=== PATIENT | male | born 1990 | race Caucasian/White ===

== ENCOUNTER 2018-05-13 11:35 | Emergency (ER) | payer MEDICAID, SELFPAY ==
[2018-05-13 11:36] VITALS: BP 106/65; PULSE 98; RESP 16; TEMP 36.5; O2SAT 98; BMI 27.6
--- NOTE | 2018-05-13 12:13 | RAD_ITS ---
STUDY: X-RAY CHEST REASON FOR EXAM: Male, 28 years old. Chest pain TECHNIQUE: PA and lateral views of the chest. COMPARISON: None. FINDINGS: The lungs are clear and expanded. There is no demonstrated pleural abnormality. Normal size heart. Normal mediastinum and efrain. Normal visualized pulmonary arteries. Normal visualized aortic arch and descending thoracic aorta. Normal visualized thoracic spine. Normal visualized ribs, clavicles, and shoulders. There is no demonstrated abnormality of the visualized soft tissue structures of the upper abdomen. RAD/Chest PA and Lateral IMPRESSION: Normal x-ray examination of the chest. Electronically Signed: Salvatore Molina DO at 12:46 EDT Tel , Service support ,
[2018-05-13] MEDS: Ipratropium/Albuterol Sulfate 3 ML AMPUL.NEB INHALATION (12:28)
[2018-05-13 12:29] VITALS: PULSE 82; RESP 16
--- NOTE | 2018-05-13 12:46 | ED.VISSUMM ---
- ER Visit Summary Date of Service: 05/13/18 Chief Complaint: Cough History of Present Illness: The patient is a 28 M who presents with cough and tightness in his chest for the past 2 weeks. Patient states he has a history of asthma when he was a child but currently does not take any medications for asthma. Patient states he has been having some clear sputum. Patient denies any fevers or chills. Patient denies any nausea or vomiting. Patient states he does feel short of breath at times. Patient also admits to intermittent headache. Physical Examination: Vital signs are stable. Patient is afebrile. Patient is in no acute distress. Oral mucosa is pink and moist. Neck is supple. Trachea is midline. There is no JVD noted. Heart was regular rate and rhythm. Lungs are clear and equal bilaterally. There is adequate respiratory effort noted. Abdomen is soft. Bowel sounds are normal. There is no tenderness noted. Cranial nerves II through XII are intact. There are no focal motor or sensory deficits noted. Test Results: PA and lateral chest x-ray was obtained. There is no acute process noted. Emergency Department Course and Treatment: Patient was given a DuoNeb aerosol here in the emergency department. Patient felt better on reevaluation. Patient was instructed to follow-up with his primary care physician in 5-7 days. Patient was given a prescription for an albuterol inhaler to take as needed. Patient understood and was agreeable with the plan. All questions were answered. Disposition: Discharge home Impression: Viral upper respiratory infection This note was generated with [facility] dictation software. It may contain incorrect words, spelling, and punctuation that were not noted in review of the chart prior to signing ED Disposition - Plan for ED Patient: Disposition: Home or Assisted Living Chief Complaint: Cough Diagnosis: Upper respiratory infection Instructions: ED Upper Resp Infec No Abx Tx Prescriptions: Albuterol Inhaler [Ventolin Hfa] 1 - 2 puff INHALATION Q4H PRN PRN #1 inhaler PRN Reason: Wheezing Referrals: NOT,DEFINED [NON-STAFF] -
[2018-05-13 13:16] VITALS: BP 128/68; PULSE 77; RESP 20; O2SAT 98
--- NOTE | 2018-05-14 13:02 | CM.ED ---
ED CALLBACK: Follow-up call placed to patient with no answer. Voicemail left with return contact information.
== END 2018-05-13 13:17 | disposition home or self-care (01) ==
PROVIDERS: Emergency Provider Emergency Medicine
DX: J06.9 Acute upper respiratory infection, unspecified (principal); Z79.899 Other long term (current) drug therapy
CPT/HCPCS: 71046; 94640; 99282

== ENCOUNTER → 2018-05-22 16:04 | Outpatient (CLI) | payer MEDICAID, SELFPAY ==
[2018-05-26 03:07] LABS: Alternaria tenuis <0.10 kU/L (Class 0); Ash, White <0.10 kU/L (Class 0); Aspergillus fumigatus <0.10 kU/L (Class 0); Bermuda Grass 3.54 kU/L (Class III); Birch <0.10 kU/L (Class 0); Black Walnut <0.10 kU/L (Class 0); Cat Hair / Dander,Stand <0.10 kU/L (Class 0); Cedar, Mountain <0.10 kU/L (Class 0); Cladosporium herbarum <0.10 kU/L (Class 0); Cockroach, American 1.24 kU/L (Class II); Cottonwood <0.10 kU/L (Class 0); D farinae Mite <0.10 kU/L (Class 0); D pteronyssinus <0.10 kU/L (Class 0); Dog Epithelia 0.29 kU/L (Class 0/I); Elm, American White <0.10 kU/L (Class 0); Immunoglobulin E 339 IU/mL (0-100); Maple/Box Elder <0.10 kU/L (Class 0); Mulberry, White <0.10 kU/L (Class 0); Oak, White <0.10 kU/L (Class 0); Pecan <0.10 kU/L (Class 0); Penicillium Notatum <0.10 kU/L (Class 0); Pigweed, Rough <0.10 kU/L (Class 0); Ragweed, Short/Common 0.14 kU/L (Class 0/I); Russian Thistle <0.10 kU/L (Class 0); Sheep Sorrel <0.10 kU/L (Class 0); Sycamore, American <0.10 kU/L (Class 0)
[2018-05-26 09:08] LABS: Immunoglobulin E 380 IU/mL (0-100); Mouse Urine <0.10 kU/L (Class 0)
== END ==
PROVIDERS: Visit Provider Otolaryngology Otolaryngology/Facial Plastic Surgery
DX: T78.40XA Allergy, unspecified, initial encounter (principal)
CPT/HCPCS: 36415; 82785; 86003

== ENCOUNTER 2018-07-10 11:55 | Day surgery (SDC) | payer MEDICAID, SELFPAY ==
[2018-07-10] VITALS (8 sets, daily range): BP systolic 97–112; BP diastolic 59–67; PULSE 62–77; RESP 16–18; TEMP 36.2–37.4; O2SAT 92–97; BMI 26.4
[2018-07-10 12:30] LABS: Hematocrit 45.7 % (40-54); Hemoglobin 15.9 g/dl (13.0-16.5); Mean Corp Hgb Conc 34.8 g/gl (32-36); Mean Corpuscular Hgb 30.2 pg (27.0-32.0); Mean Corpuscular Volume 86.7 fL (80-94); Mean Platelet Vol. 9.1 fl (6.2-12.0); Platelet Count 278 K/mm3 (150-450); RBC Distribution Width CV 12.5 % (11.6-14.6); Red Blood Count 5.27 M/mm3 (4.6-6.2); Scan Indicated on CBC? Y/N NO; White Blood Count 5.4 K/mm3 (4.4-11.0)
[2018-07-10 12:37] LABS: Prothrombin Time (Protime)PT. 12.9 SECONDS (11.7-14.9)
[2018-07-10 12:38] LABS: Partial Thromboplast Time 31.6 Seconds (24.1-36.2)
[2018-07-10 12:45] LABS: AST(SGOT) 20 U/L (15-37); Alanine Aminotransfer ALT/SGPT 27 U/L (16-61); Albumin, Serum 3.9 g/dL (3.2-5.0); Alkaline Phosphatase 77 U/L (45-117); Bilirubin, Direct 0.15 mg/dL (0.00-0.30); Globulin 3.7 g/dL (2.2-4.2); Protein, Total 7.6 g/dL (6.4-8.2)
--- NOTE | 2018-07-10 13:26 | PCM.DC ---
You will use the following diet at home:: No restrictions Discharge Activity: May not drive while taking narcotic pain medications. Call your doctor if your incision/area has: Sudden Increased Bleeding Additional Dressing/Incision Instructions:: nasal saline to both nostrils 4 times daily. bactroban ointment to incisions twice daily. sleep with head of bed elevated. do not get the bridge of your nose wet until the morning of your follow up, then get it very wet in the shower. Allergies/Adverse Reactions: Allergies No Known Allergies Allergy (Verified 07/03/18 10:06) Medications to take at Discharge Fluticasone 0.05% [Flonase Nasal [place]] 1 spray NASAL DAILY PRN 05/13/18 Albuterol Inhaler [Ventolin Hfa] 1 - 2 puff INHALATION Q4H PRN PRN 07/03/18 Loratadine [Claritin] 10 mg PO DAILY 07/03/18 Oxycodone HCl/Acetaminophen [Percocet 5/325] 1 tab PO Q6H PRN PRN 5 Days #20 tab 07/10/18 Smz/Tmp Ds [Bactrim Ds] 1 tab PO BID #14 tab 07/10/18 The following prescriptions were given: Oxycodone HCl/Acetaminophen [Percocet 5/325] 1 tab PO Q6H PRN PRN 5 Days #20 tab PRN Reason: Pain Smz/Tmp Ds [Bactrim Ds] 1 tab PO BID #14 tab Orders to be completed after discharge: Partial Thromboplast Time Time Frame: 07/10/18, Facility: [facility], Location: [place] CBC-Complete Blood Cnt No Diff Time Frame: 07/10/18, Facility: [facility], Location: [place] Liver Profile Time Frame: 07/10/18, Facility: [facility], Location: [place] Prothrombin Time w/INR Time Frame: 07/10/18, Facility: [facility], Location: [place] [place] Primary Care Physician: Care Physician,No Primary [Primary Care Provider] - Test Results: Test results from this visit will be discussed in further detail at your follow-up appointment, if applicable. Please Follow Up With: Roberto Stone MD When: 1 week
--- NOTE | 2018-07-10 13:29 | PCM.OPRPT ---
Problem List (1) Nasal congestion Status: Chronic (2) Nasal deformity, acquired Status: Chronic (3) Nasal turbinate hypertrophy Status: Chronic (4) Nasal septal deviation Status: Chronic (5) Nasal valve collapse Status: Chronic Report of Operation Date of Procedure: 07/10/18 Pre-Operative Diagnosis: 1. nasal congestion. 2. nasal septal deviation. 3. internal nasal valve dysfunction, right and left. 4. turbinate hypertrophy, right and left Post-Operative Diagnosis: 1. nasal congestion. 2. nasal septal deviation. 3. internal nasal valve dysfunction, right and left. 4. turbinate hypertrophy, right and left Surgery/Procedure Performed:: 1. open septorhinoplasty. 2. correction internal nasal valve collapse, right and left. 3. submucous resection inferior turbinates, right and left. 4. anterior septal reconstruction. 5. open reduction nasal bone fracture Type of Anesthesia:: General Description of Procedure: on the day of the procedure, after appropriate informed consent was obtained, the patient was brought to the operating room and placed in supine position on the operating table. he was placed under general endotracheal anesthesia by the anesthesiologist. the endotracheal tube was secured, the eyes were taped. the table was rotated 90 degrees toward the surgeon. the nose was injected with lidocaine/epinephrine. the face was prepped and draped in sterile fashion. an inverted V columellar incision was made with a upper [place] blade. this traversed into right and left marginal incisions with an iris scissor and three point retraction. the lower lateral cartilages were skeletonized. the scroll region was skeletonized as well with an iris scizzor as were the right and left upper lateral cartilages. the periosteum was incised with a #15 blade and a subperiosteal plane was developed with a ashley elevator. the anterior septal angle was found by lateralizing the lower lateral cartilages. a submucoperichondrial plane was developed on the right then the left with a ashley elevator. this was taken posteriorly to the bony/cartilaginous junction and inferiorly to the maxillary crest. the right and left upper lateral cartilages were disarticulated from the septum using a #15 blade. a 1cm strut of septal cartilage was preserved off of the keystone area and the remainder of the septum was removed with a ashley elevator. of note, the septum was incredibly fragmented and fractured. a sp-septum was re-fashioned from the septal cartilage and sutured to a pre-cut PDS plate. this was saved for future use. the nasal dorsum was injected with lidocaine/epinephrine. 2mm incisions were made on the right and left at the junction of the dorsum and lateral nasal sidewall. a 2mm osteotome was used to make medial then lateral osteotomies; the left nasal bones were lateralized. a 2mm osteotome was used to make medial then lateral osteotomies; the right nasal bones were medialized. the bony dorsum was then midline. the head of the right and left inferior turbinates were injected with lidocaine/epinephrine. the head of the left inferior turbinate was incised with a #15 blade, dissected submucosally with a ashley elevator, reduced using suction electrocautery and outfractured using a Boies elevator. the head of the right inferior turbinate was incised with a #15 blade, dissected submucosally with a ashley elevator, reduced using suction electrocautery and outfractured using a Boies elevator. the cartilage and PDS plate were placed as an internal cafe server graft on the left between the left upper lateral cartilage and nasal septum; this was sutured into place using 4-0 PDS. it was also anchored to the periosteum of the maxillary crest with 4-0 PDS. an additional 1cm by 2mm internal cafe server graft was placed on the patient's right side and secured with 4-0 PDS. Multiple quilting sutures with 4-0 chromic were used to reapproximate the septum, several incorporating the anterior septal reconstruction. the inverted V columellar incision was closed with a 7-0 vicryl. woodard splints were sutured into place and a dorsal nasal splint was placed. the patient was awoken from anesthesia and transferred to the PACU in stable condition.
--- NOTE | 2018-07-10 13:34 | OP.PCM_ITS ---
Problem List (1) Nasal congestion Status: Chronic (2) Nasal deformity, acquired Status: Chronic (3) Nasal turbinate hypertrophy Status: Chronic (4) Nasal septal deviation Status: Chronic (5) Nasal valve collapse Status: Chronic Report of Operation Date of Procedure: 07/10/18 Pre-Operative Diagnosis: 1. nasal congestion. 2. nasal septal deviation. 3. internal nasal valve dysfunction, right and left. 4. turbinate hypertrophy, right and left Post-Operative Diagnosis: 1. nasal congestion. 2. nasal septal deviation. 3. internal nasal valve dysfunction, right and left. 4. turbinate hypertrophy, right and left Surgery/Procedure Performed:: 1. open septorhinoplasty. 2. correction internal nasal valve collapse, right and left. 3. submucous resection inferior turbinates, right and left. 4. anterior septal reconstruction. 5. open reducti on nasal bone fracture Type of Anesthesia:: General Description of Procedure: on the day of the procedure, after appropriate informed consent was obtained, the patient was brought to the operating room and placed in supine position on the operating table. he was placed under general endotracheal anesthesia by the anesthesiologist. the endotracheal tube was secured, the eyes were taped. the table was rotated 90 degrees toward the surgeon. the nose was injected with lidocaine/epinephrine. the face was prepped and draped in sterile fashion. an inverted V columellar incision was made with a [place] blade. this traversed into right and left marginal incisions with an iris scissor and three point retraction. the lower lateral cartilages were skeletonized. the scroll region was skeletonized as well with an iris scizzor as were the right and left upper lateral cartilages. the periosteum was incised with a #15 blade and a subperiosteal plane was developed with a ashley elevator. the anterior septal angle was found by lateralizing the lower lateral cartilages. a submucoperichondrial plane was developed on the right then the left with a ashley elevator. this was taken posteriorly to the bony/cartilaginous junction and inferiorly to the maxillary crest. the right and left upper lateral cartilages were disarticulated from the septum using a #15 blade. a 1cm strut of septal cartilage was preserved off of the keystone area and the remainder of the septum was removed with a ashley elevator. of note, the septum was incredibly fragmented and fractured. a sp-septum was re-fashioned from the septal cartilage and sutured to a pre-cut PDS plate. this was saved for future use. the nasal dorsum was injected with lidocaine/epinephrine. 2mm incisions were made on the right and left at the junction of the dorsum and lateral nasal sidewall. a 2mm osteotome was used to make medial then lateral osteotomies; the left nasal bones were lateralized. a 2mm osteotome was used to make medial then lateral osteotomies; the right nasal bones were medialized. the bony dorsum was then midline. the head of the right and left inferior turbinates were injected with lidocaine/epinephrine. the head of the left inferior turbinate was incised with a #15 blade, dissected submucosally with a ashley elevator, reduced using suct ion electrocautery and outfractured using a Boies elevator. the head of the right inferior turbinate was incised with a #15 blade, dissected submucosally with a ashley elevator, reduced using suction electrocautery and outfractured using a Boies elevator. the cartilage and PDS plate were placed as an internal annealing oven operator graft on the left between the left upper lateral cartilage and nasal septum; this was sutured into place using 4-0 PDS. it was also anchored to the periosteum of the maxillary crest with 4-0 PDS. an additional 1cm by 2mm internal annealing oven operator graft was placed on the patient's right side and secured with 4-0 PDS. Multiple quilting sutures with 4-0 chromic were used to reapproximate the septum, several incorporating the anterior septal reconstruction. the inverted V columellar incision was closed with a 7-0 vicryl. woodard splints were sutured into place and a dorsal nasal splint was placed. the patient was awoken from anesthesia and transferred to the PACU in stable co ndition.
[2018-07-10] MEDS: Oxymetazoline 0.05% 1 SPRAY SPRAY.BTL 15 SPRAY (14:00)
[2018-07-10] MEDS: Mupirocin Ointment 22gm Tube 1 APPLIC (14:19)
[2018-07-10] MEDS: HYDROcodone Bitartrate/Apap 5/325 Tablet PO (17:44)
== END 2018-07-10 18:15 | disposition home or self-care (01) ==
LOC: SDC 11:56 → AC 11:57
PROVIDERS: Anesthesiology; Referring Provider Otolaryngology; Visit Provider Otolaryngology
PROC: (CPT 21336; principal; 2018-07-10 13:10)
DX: J34.2 Deviated nasal septum (principal); J34.3 Hypertrophy of nasal turbinates; J45.909 Unspecified asthma, uncomplicated; M95.0 Acquired deformity of nose; R09.81 Nasal congestion; Z79.51 Long term (current) use of inhaled steroids; Z79.899 Other long term (current) drug therapy; Z87.891 Personal history of nicotine dependence
CPT/HCPCS: 00160; 21336; 30140; 30420; 36415; 80076; 85027; 85610; 85730; J7120; J2405

== ENCOUNTER → 2020-07-30 | Outpatient (CLI) | payer OTHER, SELFPAY ==
[2018-07-10 12:22] VITALS: BMI 26.4
== END | disposition home or self-care (01) ==
LOC: LABSPEC 15:35
PROVIDERS: Referring Provider Otolaryngology; Visit Provider Otolaryngology
DX: J02.9 Acute pharyngitis, unspecified (principal)
CPT/HCPCS: 87070

== ENCOUNTER 2020-09-16 07:25 | Emergency (ER) | payer SELFPAY ==
[2020-09-16 07:26] VITALS: BP 133/79; PULSE 89; RESP 16; TEMP 36.3; O2SAT 99; BMI 25.0
[2020-09-16 07:58] LABS: Absolute Lymphocyte Count 2.23 X10^3/uL (0.83-4.51); Absolute Neutrophil Count 2.1 X10^3/uL (2.0-7.7); Basophil# 0.06 X10^3/uL; Basophil% 1.1 % (0-1); Eosinophil# 0.42 X10^3/uL; Eosinophils% 7.5 % (0-5); Hematocrit 45.9 % (40-54); Hemoglobin 16.2 g/dL (13.0-16.5); Lymphocyte # 2.23 X10^3/ul (4.0); Lymphocyte % 39.6 % (19-41); Mean Corp Hgb Conc 35.3 g/dL (32-36); Mean Corpuscular Hgb 31.5 pg (27.0-32.0); Mean Corpuscular Volume 89.1 fL (80-94); Mean Platelet Vol. 8.7 fl (6.2-12.0); Monocyte# 0.79 X10^3/uL; NRBC Flagged by Analyzer 0 % (0-5); Neutrophil # 2.12 X10^3/uL (2.7-7.7); Neutrophil % 37.6 % (47-70); Platelet Count 335 K/mm3 (150-450); RBC Distribution Width CV 13.3 % (11.6-14.6); RBC Distribution Width SD 41.3 fl (35.1-43.9); Red Blood Count 5.15 M/mm3 (4.6-6.2); White Blood Count 5.6 K/mm3 (4.4-11.0)
--- NOTE | 2020-09-16 08:06 | ED.VISSUMM ---
- ER Visit Summary Date of Service: 09/16/20 Chief Complaint: Sore throat History of Present Illness: The patient is a 30 M who presents with a sore throat. He has had this intermittently for months. He is followed up with ear nose and throat. They have done more tests to figure out why his throat is sore. He did test positive for strep but even after this was treated he still had symptoms. He has had no cough, fever, nausea, vomiting, nasal congestion. They did test him for CLAU and PHOTORADIO OPERATOR antibodies and those came back positive. He then tells me he has a follow-up appointment with ENT today. At 1 point he states that he had a CBC which showed an elevated white blood cell count. Physical Examination: Vital signs reviewed. HEENT exam unremarkable. His throat is nonerythematous. He has no cervical lymphadenopathy. His uvula is midline. Heart is regular rate and rhythm without murmurs. Lungs are clear to auscultation. Abdomen is soft and nontender. Extremities reveal no edema. Skin exam normal. Neurologic exam normal. Test Results: CBC is normal Emergency Department Course and Treatment: I am unclear as to why he is having a sore throat. He does have these positive antibodies which could reflect an autoimmune or connective tissue disorder. At this point I will give him a dose of steroids to see if this will help. He will follow-up with ENT today as scheduled Treatment Plan: [] Disposition: Discharge Impression: Pharyngitis This note was generated with [employer] dictation software. It may contain incorrect words, spelling, and punctuation that were not noted in review of the chart prior to signing ED Disposition - Plan for ED Patient: Disposition: Home or Assisted Living Instructions: ED Pharyngitis, Report Pending Prescriptions: Prednisone [Deltasone] 40 mg PO DAILY #10 tab Transmission Status: Pending to [id number] [facility] Referrals: ANNE ONTIVEROS [Other]
== END 2020-09-16 08:21 | disposition home or self-care (01) ==
PROVIDERS: Emergency Provider Emergency Medicine
DX: J02.9 Acute pharyngitis, unspecified (principal)
CPT/HCPCS: 85025; 99282